=== PATIENT | female | born 1950 | race Caucasian/White ===

== ENCOUNTER 2017-05-22 05:39 | Inpatient (IN) | payer OTHER ==
[~2017-05-22] VITALS: Ht 167.6 cm; Wt 67.1 kg
[~2017-05-22 05:39] MED LIST: DULO60CA41 PO; LEVO137T20 PO; LISI-217 PO
[2017-05-22] MEDS ORDERED: CELECOXIB 200 MG CAPSULE ONE (06:08)
[2017-05-22] MEDS ORDERED: GABAPENTIN 300 MG CAPSULE ONE (06:09)
[2017-05-22] MEDS ORDERED: ACETAMINOPHEN 500 MG TABLET ONE (06:10)
[2017-05-22] MEDS ORDERED: oxyCODONE HCL 10 MG TAB.ER.12H PO ONE ×2 (06:10→07:00)
[2017-05-22] MEDS ORDERED: TRANEXAMIC ACID 650 MG TABLET ONE (06:11)
[2017-05-22] MEDS ORDERED: CEFAZOLIN 2 GM IVPB PREMIX 50 ML IV ONE ×2 (06:19→07:00)
[2017-05-22] MEDS ORDERED: ZOLP10TA2 PO (06:42)
[2017-05-22] MEDS ORDERED: DULO60CA41 PO (06:42)
[2017-05-22] MEDS ORDERED: TRANEXAMIC ACID 650 MG TABLET PO ONE (07:00)
[2017-05-22] MEDS ORDERED: CELECOXIB 200 MG CAPSULE PO ONE (07:00)
[2017-05-22] MEDS ORDERED: ACETAMINOPHEN 500 MG TABLET PO ONE (07:00)
[2017-05-22] MEDS ORDERED: NACL 0.9% 1,000 ML IV ONE (07:00)
[2017-05-22] MEDS ORDERED: GABAPENTIN 300 MG CAPSULE PO ONE (07:00)
[2017-05-22] MEDS ORDERED: BUPIVACAINE /PF 0.75% 10 ML VIAL INJ ONE (07:01)
[2017-05-22] MEDS ORDERED: NORMAL SALINE 10 ML VIAL IVP ONE (07:01)
[2017-05-22] MEDS ORDERED: VANCOMYCIN HCL 1000 MG/VIAL IV ONE (07:01)
[2017-05-22] MEDS ORDERED: MORPHINE SULFATE 10MG/10ML PF AMP EP ONE (07:01)
[2017-05-22] MEDS ORDERED: NS 100 ML BAG IV ONE (07:01)
[2017-05-22] MEDS ORDERED: LR 1,000 ML IV.SOLN IV ONE (07:01)
[2017-05-22] MEDS ORDERED: KETOROLAC TROMETHAMINE 30 MG VIAL IVP ONE (07:01)
[2017-05-22] MEDS ORDERED: EPINEPHrine 1 MG/ML AMP IVP ONE (07:01)
[2017-05-22] MEDS ORDERED: PROPOFOL 200MG/ 20ML VIAL (DIPRIVAN) IV ONE (07:01)
[2017-05-22] MEDS ORDERED: ROPIVACAINE 0.2% (NAROPIN) PF SOLUTION 100 ML BOTTLE EP ONE (07:01)
[2017-05-22] MEDS ORDERED: SEVOFLURANE 15 MIN GAS INH ONE (07:01)
[2017-05-22] MEDS ORDERED: DEXAMETHASONE SOD PHOSPHATE 4 MG/ML VIAL IVP ONE (07:01)
[2017-05-22] MEDS ORDERED: TRANEXAMIC ACID 1,000 MG/10 ML VIAL IV ONE (07:01)
[2017-05-22] MEDS ORDERED: MIDAZOLAM HCL 5 MG/5 ML VIAL IVP ONE (07:01)
[2017-05-22] MEDS ORDERED: ROPIVACAINE HCL/PF 5 MG/ML 0.5% 30 ML VIAL INJ ONE (07:01)
[2017-05-22] MEDS ORDERED: fentaNYL CITRATE/PF 100 MCG/2 ML AMP IVP ONE (07:01)
[2017-05-22] MEDS ORDERED: METOCLOPRAMIDE HCL 10 MG/2 ML VIAL IVP ONE (07:01)
[2017-05-22] MEDS ORDERED: POLYMYXIN 500,000/BACIT.10,000 UNITS in NS IRR 1 L IR ONE (07:05)
[2017-05-22] MEDS ORDERED: HYDROmorphone 1 MG INJ. 1 MG/ML AMPUL IVP PRN (08:30)
[2017-05-22] MEDS ORDERED: NALBUPHINE HCL 10 MG/ML AMP IVP PRN (08:30)
[2017-05-22] MEDS ORDERED: DIPHENHYDRAMINE INJ 50 MG/ML VIAL IVP PRN (08:30)
[2017-05-22] MEDS ORDERED: ONDANSETRON HCL 4 MG/2 ML VIAL IVP PRN ×2 (08:30→09:15)
[2017-05-22] MEDS ORDERED: ROPIVACAINE 0.2% 550 ML INJ SCH (09:05)
[2017-05-22] MEDS ORDERED: KETOROLAC TROMETHAMINE 15 MG VIAL IVP PRN (09:15)
[2017-05-22] MEDS ORDERED: PROMETHAZINE HCL 25 MG/ML AMP IVP PRN (09:15)
[2017-05-22] MEDS ORDERED: DIPHENHYDRAMINE HCL 25 MG CAPSULE PO PRN (09:15)
[2017-05-22] MEDS ORDERED: ZOLPIDEM TARTRATE 5 MG TABLET PO SCH (09:15)
[2017-05-22] MEDS ORDERED: oxyCODONE HCL 5 MG TABLET PO PRN (09:15)
[2017-05-22] MEDS ORDERED: SENNOSIDES 8.6 MG TABLET PO PRN (09:15)
[2017-05-22 10:30] VITALS: BP_SYST 105
[2017-05-22 11:02] VITALS: BP_SYST 105
[2017-05-22] MEDS: D5LR 1,000 ML IV SCH ×2 (11:36→20:06)
[2017-05-22] MEDS: oxyCODONE HCL 5 MG TABLET PO PRN ×3 (11:48→22:17)
[2017-05-22] MEDS: CEFAZOLIN 1 GM IVPB PREMIX 50 ML IV SCH ×2 (12:07→20:10)
[2017-05-22] MEDS: ACETAMINOPHEN 500 MG TABLET PO SCH ×2 (15:11→20:07)
[2017-05-22 16:20] VITALS: BP_SYST 126
[2017-05-22 19:20] VITALS: BP_SYST 126
[2017-05-22 20:00] VITALS: BP_SYST 109
[2017-05-22] MEDS: CELECOXIB 200 MG CAPSULE PO SCH (20:06)
[2017-05-22] MEDS: GABAPENTIN 300 MG CAPSULE PO SCH (20:07)
[2017-05-23] VITALS: BP_SYST 101
[2017-05-23 04:00] VITALS: BP_SYST 94
[2017-05-23] MEDS: CEFAZOLIN 1 GM IVPB PREMIX 50 ML IV SCH (05:09)
[2017-05-23] MEDS: D5LR 1,000 ML IV SCH ×2 (05:10→16:40)
[2017-05-23 06:25] LABS: HEMATOCRIT 27.1 % (36-48); HEMOGLOBIN 9.1 g/dL (12.0-16.0); MEAN CORPUSCULAR HEMOGLOBIN 29 pg (27-31); MEAN CORPUSCULAR HGB CONC 33 % (32-36); MEAN CORPUSCULAR VOLUME 88 fL (79.0-98.0); PLATELET COUNT (AUTO) 160 K/uL (130-430); RED BLOOD CELL COUNT(AUTO) 3.08 MIL/uL (4.2-6.2); RED CELL DISTRIBUTION WIDTH 13.8 % (9.0-15.0); WHITE BLOOD COUNT (AUTO) 25.1 K/uL (4.8-10.8)
[2017-05-23 06:35] LABS: CALCIUM 7.6 mg/dL (8.4-11.0); CREATININE 0.83 mg/dL (0.55-1.30); POTASSIUM 3.8 mmol/L (3.5-5.1)
[2017-05-23] MEDS: MORPHINE 4 MG/ML INJ. SYRINGE IVP PRN ×2 (07:56→21:10)
[2017-05-23 07:58] LABS: BAND % (MANUAL) 2 % (0-6)
[2017-05-23 07:59] LABS: ATYPICAL LYMPHOCYTES % 2 % (0-0); BASOPHILS % (MANUAL) 0 % (0-2); EOSINOPHILS % (MANUAL) 1 % (0-7); LYMPHOCYTES % (MANUAL) 65 % (20-46); MONOCYTES % (MANUAL) 4 % (0-11)
[2017-05-23 08:47] VITALS: BP_SYST 110
[2017-05-23] MEDS: DULoxetine HCL 30 MG CAPSULE.DR (CYMBALTA) PO SCH (08:59)
[2017-05-23] MEDS: ACETAMINOPHEN 500 MG TABLET PO SCH ×3 (08:59→21:02)
[2017-05-23] MEDS: LEVOTHYROXINE SODIUM 0.137 MG TABLET PO SCH (09:00)
[2017-05-23] MEDS: LISINOPRIL 10 MG TABLET (PRINIVIL) PO SCH (09:00)
[2017-05-23] MEDS ORDERED: LISINOPRIL PO SCH (09:00)
[2017-05-23] MEDS: CELECOXIB 200 MG CAPSULE PO SCH ×2 (09:00→21:01)
[2017-05-23] MEDS ORDERED: HCTZ PO SCH (09:00)
[2017-05-23] MEDS: HYDROCHLOROTHIAZIDE 12.5 MG CAPSULE (HCTZ) PO SCH (09:01)
[2017-05-23] MEDS: RIVAROXABAN 10 MG TABLET PO SCH (10:12)
[2017-05-23 12:30] VITALS: BP_SYST 133
[2017-05-23] MEDS: oxyCODONE HCL 5 MG TABLET PO PRN (13:01)
[2017-05-23 16:44] VITALS: BP_SYST 124
[2017-05-23 20:05] VITALS: BP_SYST 110
[2017-05-23] MEDS: GABAPENTIN 300 MG CAPSULE PO SCH (21:01)
[2017-05-24 01:06] VITALS: BP_SYST 107
[2017-05-24] MEDS: D5LR 1,000 ML IV SCH ×3 (02:17→21:31)
[2017-05-24 03:46] VITALS: BP_SYST 110
[2017-05-24] MEDS: oxyCODONE HCL 5 MG TABLET PO PRN ×3 (06:03→16:17)
[2017-05-24 06:25] LABS: BASOPHILS # (AUTO) 0.1 K/uL (0.0-0.2); BASOPHILS % (AUTO) 0.3 % (0.0-2.0); EOSINOPHILS # (AUTO) 0.7 K/uL (0.0-0.4); EOSINOPHILS % (AUTO) 3.5 % (0.0-4.0); HEMATOCRIT 23.9 % (36-48); HEMOGLOBIN 7.9 g/dL (12.0-16.0); LYMPHOCYTES # (AUTO) 14.7 K/uL (1.0-5.5); LYMPHOCYTES % (AUTO) 72.4 % (20.5-51.5); MEAN CORPUSCULAR HEMOGLOBIN 29 pg (27-31); MEAN CORPUSCULAR HGB CONC 33 % (32-36); MEAN CORPUSCULAR VOLUME 88 fL (79.0-98.0); MONOCYTES # (AUTO) 2.1 K/uL (0.0-1.0); MONOCYTES % (AUTO) 10.3 % (1.7-9.3); NEUTROPHILS # (AUTO) 2.7 K/uL (1.8-7.7); PLATELET COUNT (AUTO) 133 K/uL (130-430); RED BLOOD CELL COUNT(AUTO) 2.72 MIL/uL (4.2-6.2); RED CELL DISTRIBUTION WIDTH 14.2 % (9.0-15.0); WHITE BLOOD COUNT (AUTO) 20.3 K/uL (4.8-10.8)
[2017-05-24 06:55] LABS: CALCIUM 7.6 mg/dL (8.4-11.0); CREATININE 0.76 mg/dL (0.55-1.30); POTASSIUM 3.6 mmol/L (3.5-5.1)
[2017-05-24] MEDS: LEVOTHYROXINE SODIUM 0.137 MG TABLET PO SCH (07:53)
[2017-05-24] MEDS ORDERED: DIPHENHYDRAMINE HCL 12.5 MG/5 ML UDC NG ONE (08:00)
[2017-05-24 08:05] VITALS: BP_SYST 132
[2017-05-24] MEDS: LISINOPRIL 10 MG TABLET (PRINIVIL) PO SCH (08:53)
[2017-05-24] MEDS: CELECOXIB 200 MG CAPSULE PO SCH ×2 (08:53→21:24)
[2017-05-24] MEDS: DULoxetine HCL 30 MG CAPSULE.DR (CYMBALTA) PO SCH (08:53)
[2017-05-24] MEDS: HYDROCHLOROTHIAZIDE 12.5 MG CAPSULE (HCTZ) PO SCH (08:54)
[2017-05-24] MEDS: ACETAMINOPHEN 500 MG TABLET PO SCH ×3 (08:54→21:24)
[2017-05-24] MEDS: RIVAROXABAN 10 MG TABLET PO SCH (10:23)
[2017-05-24 10:59] LABS: NEUTROPHILS % (AUTO) 13.5 % (40.0-70.0)
[2017-05-24 12:00] VITALS: BP_SYST 135
[2017-05-24 17:01] VITALS: BP_SYST 134
[2017-05-24 20:00] VITALS: BP_SYST 136
[2017-05-24] MEDS: GABAPENTIN 300 MG CAPSULE PO SCH (21:23)
[2017-05-25 00:32] VITALS: BP_SYST 142
[2017-05-25 02:57] VITALS: BP_SYST 140
[2017-05-25] MEDS: D5LR 1,000 ML IV SCH (06:16)
[2017-05-25] MEDS: oxyCODONE HCL 5 MG TABLET PO PRN ×2 (06:22→12:37)
[2017-05-25 06:26] LABS: BASOPHILS # (AUTO) 0.2 K/uL (0.0-0.2); BASOPHILS % (AUTO) 0.6 % (0.0-2.0); EOSINOPHILS # (AUTO) 1.5 K/uL (0.0-0.4); EOSINOPHILS % (AUTO) 5.2 % (0.0-4.0); HEMOGLOBIN 9.9 g/dL (12.0-16.0); LYMPHOCYTES # (AUTO) 19.8 K/uL (1.0-5.5); MEAN CORPUSCULAR HEMOGLOBIN 29 pg (27-31); MEAN CORPUSCULAR HGB CONC 33 % (32-36); MEAN CORPUSCULAR VOLUME 89 fL (79.0-98.0); MONOCYTES # (AUTO) 3.1 K/uL (0.0-1.0); MONOCYTES % (AUTO) 10.6 % (1.7-9.3); NEUTROPHILS # (AUTO) 4.2 K/uL (1.8-7.7); NEUTROPHILS % (AUTO) 14.6 % (40.0-70.0); PLATELET COUNT (AUTO) 158 K/uL (130-430); RED BLOOD CELL COUNT(AUTO) 3.37 MIL/uL (4.2-6.2); RED CELL DISTRIBUTION WIDTH 13.5 % (9.0-15.0); WHITE BLOOD COUNT (AUTO) 28.8 K/uL (4.8-10.8)
[2017-05-25 06:41] LABS: CALCIUM 8.1 mg/dL (8.4-11.0); CREATININE 0.73 mg/dL (0.55-1.30); POTASSIUM 3.4 mmol/L (3.5-5.1)
[2017-05-25 08:00] VITALS: BP_SYST 125
[2017-05-25] MEDS: RIVAROXABAN 10 MG TABLET PO SCH (09:13)
[2017-05-25] MEDS: ACETAMINOPHEN 500 MG TABLET PO SCH (09:14)
[2017-05-25] MEDS: LEVOTHYROXINE SODIUM 0.137 MG TABLET PO SCH (09:14)
[2017-05-25] MEDS: LISINOPRIL 10 MG TABLET (PRINIVIL) PO SCH (09:15)
[2017-05-25] MEDS: CELECOXIB 200 MG CAPSULE PO SCH (09:16)
[2017-05-25] MEDS: HYDROCHLOROTHIAZIDE 12.5 MG CAPSULE (HCTZ) PO SCH (09:16)
[2017-05-25] MEDS: DULoxetine HCL 30 MG CAPSULE.DR (CYMBALTA) PO SCH (09:16)
[2017-05-25] MEDS ORDERED: POTASSIUM CHLORIDE 20 MEQ/PKT PACKET PO ONE (12:15)
[2017-05-25 12:26] VITALS: BP_SYST 125; BP_SYST 136
== END 2017-05-25 15:20 | disposition home health service (06) | DRG 470 ==
LOC: SMU 05:39 → STU 10:23 → SMU 05-23 12:06
PROVIDERS: ADMIT Orthopaedic Surgery; ATTEND Orthopaedic Surgery
PROC: 0SRC0J9 Replacement of Right Knee Joint with Synthetic Substitute, Cemented, Open Approach (ICD-10-PCS; principal; 2017-05-22 07:30)
PROC: 30233N1 Transfusion of Nonautologous Red Blood Cells into Peripheral Vein, Percutaneous Approach (ICD-10-PCS; 2017-05-24)
DX: M17.11 Unilateral primary osteoarthritis, right knee (principal); C91.10 Chronic lymphocytic leukemia of B-cell type not having achieved remission; Z96.652 Presence of left artificial knee joint; I10 Essential (primary) hypertension; R01.1 Cardiac murmur, unspecified; R73.9 Hyperglycemia, unspecified; D64.9 Anemia, unspecified; E89.0 Postprocedural hypothyroidism; F32.9 Major depressive disorder, single episode, unspecified; F41.9 Anxiety disorder, unspecified; Z85.850 Personal history of malignant neoplasm of thyroid; Z85.3 Personal history of malignant neoplasm of breast; Z90.10 Acquired absence of unspecified breast and nipple
CPT/HCPCS: 36415; 80048; 82962; 83036; 84443-TC; 85007; 85025; 85027; 86886; 86900; 86901; 86920; 87081; 88305; 88311; 93306; 97039; 97110-GP; 97116-GP; 97530-GP; C1713; C1776; J0171; J0690; J1100; J1885; J2250; J2270; J2274; J2704; J2765; J2795; J3010; J3370; J3490; J7120; P9021